=== PATIENT | female | born 1970 | race Hispanic/Latino ===

== ENCOUNTER → 2018-03-22 | Outpatient (CLI) | payer BC ==
--- NOTE | 2018-03-29 09:55 | Diagnostic Imaging Report ---
#[id number] - MGSCRBIL #BILATERAL DIGITAL SCREENING MAMMOGRAM WITH CAD: 03/22/2018 CLINICAL: Routine screening. Comparison is made to exams dated: 05/14/2017 mammogram and 12/20/2015 mammogram - [facility]. Current study contains 4 films. The tissue of both breasts is heterogeneously dense. This may lower the sensitivity of mammography. Current study was also evaluated with a Computer Aided Detection (CAD) system. There is a benign nodule in the right breast. There also are benign scattered calcifications in the right breast. Additionally there is a benign calcification and an intramammary node in the left breast. No significant masses, calcifications, or other findings are seen in either breast. There has been no significant interval change. IMPRESSION: BENIGN There is no mammographic evidence of malignancy. A 1 year screening mammogram is recommended. The patient will be notified by letter of the results. Wilberto boyce/mery:03/26/2018 10:42:24 Spud Grader: Pennie SONG)(M), [facility] letter sent: Compared to Prior B9 Mammogram BI-RADS: 2 Benign
== END ==
LOC: MAMMO 11:24
PROVIDERS: ATTEND Obstetrics & Gynecology
DX: Z12.31 Encounter for screening mammogram for malignant neoplasm of breast (principal)
CPT/HCPCS: 77067

== ENCOUNTER → 2018-04-29 | Outpatient (CLI) | payer BC ==
--- NOTE | 2018-04-30 08:48 | Diagnostic Imaging Report ---
#[id number] - USBRECOMRT ULTRASOUND OF THE RIGHT BREAST : 04/29/2018 Comparison is made to exams dated: 03/22/2018 mammogram and 05/14/2017 mammogram - [facility]. Color flow and real-time ultrasound were performed on the entire right breast with scanning in all four quadrants, retroareolar region and the right axilla. -A 9 x 5 x 6 mm (slightly larger) nodule at 12 o'clock 3 cm from the nipple has a benign appearance -An 8 x 6 x 8 mm (previously 8 x 4 x 7 mm) nodule adjacent to the above nodule at 12 o'clock 3 cm from the nipple has a benign appearance. -An 8 x 5 x 5 mmheterogenous nodule resembling a lymph node at 8 o'clock 4 cm from the nipple has a benign appearance. IMPRESSION: BENIGN There is no sonographic evidence of malignancy. A 1 year screening mammogram is recommended. Wilberto Schroeder Jr., D.O. cw/:04/29/2018 14:56:05 Exchange Consultant: DANNY WOOD, [facility] letter sent: Normal Exam Ultrasound BI-RADS: 2 Benign
--- NOTE | 2018-04-30 08:48 | Diagnostic Imaging Report ---
#[id number] - USBRECOMLT ULTRASOUND OF THE LEFT BREAST : 04/29/2018 Comparison is made to exams dated: 03/22/2018 mammogram and 05/14/2017 mammogram - [facility]. Color flow and real-time ultrasound were performed on the entire left breast with scanning in all four quadrants, retroareolar region and the left axilla. -An 8 x 3 x 9 mm hypoechoic nodule at 12 o'clock 2 cm from the nipple has a benign appearance -A 6 x 3 x 6 mm hypoechoic nodule at 2 o'clock 3 cm from the nipple has a benign appearance IMPRESSION: BENIGN There is no sonographic evidence of malignancy. A 1 year screening mammogram is recommended. Wilberto Schroeder Jr., D.O. cw/:04/29/2018 14:49:36 Low Heel Builder: DANNY WOOD, [facility] letter sent: Normal Exam Ultrasound BI-RADS: 2 Benign
== END ==
LOC: US 13:17
PROVIDERS: ATTEND Obstetrics & Gynecology
DX: R92.2 Inconclusive mammogram (principal)

== ENCOUNTER → 2019-06-06 | Outpatient (CLI) | payer SELFPAY ==
--- NOTE | 2019-06-08 08:43 | Diagnostic Imaging Report ---
#[id number] - MGSCRBIL #BILATERAL DIGITAL SCREENING MAMMOGRAM WITH CAD: 06/06/2019 CLINICAL: Routine screening. Comparison is made to exams dated: 03/22/2018 mammogram and 05/14/2017 mammogram - [facility]. Current study contains 4 films. The tissue of both breasts is heterogeneously dense. This may lower the sensitivity of mammography. Current study was also evaluated with a Computer Aided Detection (CAD) system. Benign appearing calcifications are noted bilaterally. There is benign, stable nodularity in both breasts. No significant masses, calcifications, or other findings are seen in either breast. IMPRESSION: BENIGN There is no mammographic evidence of malignancy. A 1 year screening mammogram is recommended. The patient will be notified by letter of the results. ALONA buchanan/penrad:06/07/2019 16:42:28 On Site Property Manager: Pennie JOYCE(Lindsey)(Neelam), [facility] letter sent: Normal Exam Mammogram BI-RADS: 2 Benign
== END ==
LOC: MAMMO 13:46
PROVIDERS: ATTEND Obstetrics & Gynecology
DX: Z12.31 Encounter for screening mammogram for malignant neoplasm of breast (principal)
CPT/HCPCS: 77067

== ENCOUNTER → 2024-05-17 | Outpatient (REF) | payer OTHER | LOC: MAMMO 08:52 | PROVIDERS: ATTEND Obstetrics & Gynecology | DX: Z12.31 Encounter for screening mammogram for malignant neoplasm of breast (principal) | CPT/HCPCS: 77067 ==

== ENCOUNTER → 2025-05-09 | Outpatient (REF) | payer BC | LOC: MAMMO 11:46 | PROVIDERS: ATTEND Obstetrics & Gynecology | DX: Z12.31 Encounter for screening mammogram for malignant neoplasm of breast (principal) | CPT/HCPCS: 77067 ==